=== PATIENT | male | born 1945 | race Caucasian/White ===

== ENCOUNTER 2018-07-06 08:34 | Day surgery (SDC) | payer MEDICARE ==
[2018-07-04 12:17] LABS: BASOPHILS % (AUTO) 0.8 % (0-1); EOSINOPHILS # (AUTO) 0.1 X10'3 (0-0.9); EOSINOPHILS % (AUTO) 2.3 % (0-6); HEMATOCRIT 39.7 % (42.0-52.0); HEMOGLOBIN 13.4 g/dl (14.0-17.9); LYMPHOCYTES % (AUTO) 21.7 % (21-51); MEAN CORPUSCULAR HGB CONC 33.7 g/dL (33.0-36.5); MEAN CORPUSCULAR VOLUME 89.1 FL (78-98); MEAN PLATELET VOLUME 8.5 FL (7.4-10.4); MONOCYTES # (AUTO) 0.4 X10'3 (0-0.9); MONOCYTES % (AUTO) 9.3 % (2-12); NEUTROPHILS # (AUTO) 3.1 X10'3 (1.8-7.7); NEUTROPHILS % (AUTO) 65.9 % (42-75); PLATELET COUNT 169 X10'3 (140-440); RED BLOOD COUNT 4.45 X10'6 (4.70-6.10); RED CELL DISTRIBUTION WIDTH 14.1 % (11.5-14.5); WHITE BLOOD COUNT 4.6 X10'3 (4.5-11.0)
[2018-07-04 12:25] LABS: INR 1.9 INR; PARTIAL THROMBOPLASTIN TIME 38 SECONDS (22-32); PROTHROMBIN TIME 18.7 SECONDS (9.0-12.0)
[2018-07-04 12:27] LABS: ALANINE AMINOTRANSFERASE 16 U/L (12-78); ALBUMIN/GLOBULIN RATIO 1.1 (1.1-1.5); ALKALINE PHOSPHATASE 83 IU/L (46-116); ANION GAP 5 (8-16); ASPARTATE AMINO TRANSFERASE 10 U/L (10-37); BILIRUBIN,TOTAL 0.7 MG/DL (0.1-1.0); BLOOD UREA NITROGEN 12 MG/DL (7-18); BUN/CREATININE RATIO 11.1 (5.4-32.0); CALCIUM 9.2 MG/DL (8.5-10.1); CHLORIDE 104 MMOL/L (99-107); CREATININE 1.08 MG/DL (0.60-1.10); GLUCOSE 99 MG/DL (70-104); POTASSIUM 4.3 MMOL/L (3.5-5.1); SODIUM 137 MMOL/L (135-145); TOTAL PROTEIN 7.5 G/DL (6.4-8.2); eGFR 67 ML/MIN
[~2018-07-06] VITALS: Ht 195.6 cm; Wt 108.2 kg
[2018-07-06] VITALS (14 sets, daily range): BP systolic 114–171; BP diastolic 62–99
[2018-07-06] MEDS ORDERED: LORazepam 0.5 MG tablet PO PRN (08:55)
[2018-07-06] MEDS ORDERED: normal saline 1,000 ML IV SCH (08:55)
[2018-07-06] MEDS ORDERED: nitroGLYCERIN 0.4mg SUBLingual tab SL PRN ×2 (08:55→13:20)
[2018-07-06] MEDS ORDERED: diphenhydrAMINE 25mg capsule PO PRN (08:55)
[2018-07-06] MEDS ORDERED: COU4T PO (09:04)
[2018-07-06] MEDS ORDERED: CARV-50 PO (09:04)
[2018-07-06] MEDS ORDERED: LISI-600 PO (09:04)
[2018-07-06] MEDS ORDERED: DIGO125T PO (09:04)
[2018-07-06] MEDS ORDERED: TIMO5SOL8 EACHEYE (09:14)
[2018-07-06] MEDS ORDERED: GLUC-133 PO (09:14)
[2018-07-06] MEDS ORDERED: BIMA2.5D OP (09:14)
[2018-07-06] MEDS ORDERED: iohexol 350MG/ML 100ml bottle IV ONE (11:22)
[2018-07-06] MEDS ORDERED: iohexol 350 MG/ML 50ML vial IV ONE ×2 (11:22→12:01)
[2018-07-06] MEDS ORDERED: midazolam 2 mg/2 ml injection ONE ×2 (11:22→12:06)
[2018-07-06] MEDS ORDERED: LIDOcaine 1% (10mg/ml)w/preservative injection 20ml MDV ONE (11:22)
[2018-07-06] MEDS ORDERED: fentaNYL/PF 50MCG/1 ML 2ML syringe ONE (11:22)
[2018-07-06] MEDS ORDERED: acetaminophen 325mg tablet PO PRN (13:20)
[2018-07-06] MEDS ORDERED: OXAZEpam 15mg capsule PO PRN (13:20)
[2018-07-06] MEDS ORDERED: proCHLORperazine 10 MG/2 ml inj IV PRN (13:20)
[2018-07-06] MEDS ORDERED: HYDROcodone/acetaminophen 10/325mg tab PO PRN (13:20)
[2018-07-06] MEDS ORDERED: ondansetron/PF 4mg/2ml inj IV PRN (13:20)
[2018-07-06] MEDS ORDERED: HYDROcodone/acetaminophen 5mg/325mg tablet PO PRN (13:20)
== END 2018-07-06 18:55 | disposition home or self-care (01) ==
LOC: SSTAY O 08:34
PROVIDERS: ATTEND Internal Medicine Cardiovascular Disease
DX: I25.10 Atherosclerotic heart disease of native coronary artery without angina pectoris (principal); I10 Essential (primary) hypertension; Z98.52 Vasectomy status; Z79.899 Other long term (current) drug therapy
CPT/HCPCS: 36415; 71046; 80053; 83880; 85025; 85610; 85730; 93005; 93458; 93567; 99152; 99153; A6257; J1644; J2001; J2250; J3010; J7030; Q0163; Q9967; A4620; C1760; C1769